=== PATIENT | female | born 1985 | race Caucasian/White ===

== ENCOUNTER → 2016-04-18 | Outpatient (CLI) | payer OTHER ==
[~2016-04-18] MED LIST: ALBUTEROL0.09 MG/A2 INH; AMOXICILLI200 MG/51 PO; ATIVAN0.5 MG PO; CLARITIN10 MG PO; CYCLOBENZAPRINE5 M3 PO; DOXYCYLINE50 MG PO; FLAGYL500 M1 PO; FLEXERIL5 MG PO; FLINTSTONES1 CTB PO; HYDROCODONE BIT1 T11 PO; KLONOPIN0.5 MG PO; LATUDA PO; MEDROL DOSEPAK4 MG PO; MOTRIN800 MG PO; Motrin,Rufen800 MG PO; PERCOCET 325 MG1 TA5 PO; PRENATAL1 TA1 PO; PROVENTIL0.09 MG/A1 INH; REXULTI0.5 MG PO; TESSALON PERLE100 M1 PO; TYLENOL W/ CODEI5 ML PO; ULTRAM50 MG PO; VISTARIL25 MG PO; XANAX0.25 MG PO; ZANTAC150 MG PO; ZITHROMAX250 MG PO; ZOFRAN4 MG PO
[2016-04-18 08:47] LABS: BILIRUBIN NEGATIVE (NEGATIVE); BLOOD 1+ (NEGATIVE); CLARITY CLEAR (CLEAR); COLOR YELLOW (YELLOW); GLUCOSE NEGATIVE (NEGATIVE); KETONE NEGATIVE (NEGATIVE); LEUKO ESTERASE NEGATIVE (NEGATIVE); NITRITE NEGATIVE (NEGATIVE); PH 5.5 (5.0-9.0); PROTEIN NEGATIVE (NEGATIVE); SPECIFIC GRAVITY 1.015 (1.005-1.030); UROBILINOGEN 0.2 E.U./dl (0.2-1.0)
[2016-04-18 08:55] LABS: URINE AMPHETAMINES < 1000 (1000ng/ml); URINE BARBITURATES < 200 (200ng/ml); URINE COCAINE < 300 (300ng/ml)
[2016-04-18 09:04] LABS: BASO # 0.1 10*3/uL (0.0-0.1); EOS # 0.6 10*3/uL (0.0-0.4); EOS % 7.7 % (1.0-4.0); HEMATOCRIT 40.7 % (37.0-47.0); HEMOGLOBIN 13.2 g/dl (12.0-16.0); LYMPH # 1.8 10*3/uL (1.3-4.4); LYMPH % 25.4 % (27.0-41.0); MEAN CELL VOLUME 89.5 fl (81.0-99.0); MEAN CORPUSCULAR HGB CONC 32.4 g/dl (33.0-37.0); MEAN PLATELET VOLUME 9.2 fl (9.6-12.3); MONO # 0.5 10*3/uL (0.1-1.0); NEUT # 4.3 10*3/uL (2.3-7.9); NEUT % 58.6 % (47.0-73.0); PLATELET COUNT AUTOMATED 347 10*3/uL (130-400); RED BLOOD COUNT 4.55 10*6/uL (4.10-5.10); WHITE BLOOD COUNT 7.3 10*3/uL (4.8-10.8)
[2016-04-18 09:27] LABS: ALBUMIN 3.8 gm/dl (3.1-4.5); ALKALINE PHOSPHATASE 63 U/L (45-117); BILIRUBIN, DIRECT < 0.1 mg/dL (0.0-0.2); BILIRUBIN, TOTAL 0.3 mg/dl (0.2-1.0); BUN 13 mg/dl (7-24); CARBON DIOXIDE 28 mmol/L (21-32); CHLORIDE 105 mmol/L (98-107); CHOLESTEROL 194 mg/dL (<200); EST GLOM FILT AFRICAN AMERICAN > 60 ml/min; GLUCOSE 88 mg/dL (65-99); HDL CHOLESTEROL 73 mg/dl (40-60); LDL CHOLESTEROL 103 mg/dL (9-159); POTASSIUM 4.1 mmol/L (3.5-5.1); SGOT/AST 11 IU/L (3-35); SGPT/ALT 23 U/L (12-78); SODIUM 141 mmol/L (136-145); THYROXINE (T4) TOTAL 9.5 ug/dl (4.8-13.9); TOTAL PROTEIN 7.2 gm/dL (6.4-8.2); TRIGLYCERIDES 92 mg/dl (<150); VLDL CHOLESTEROL 18 mg/dL (6-40)
[2016-04-18 09:34] LABS: BACTERIA 1+
[2016-04-18 09:45] LABS: VITAMIN D, 25-HYDROXY 29.2 ng/mL (30-100)
== END | disposition home or self-care (01) ==
LOC: LAB 08:11
PROVIDERS: Nurse Practitioner Psychiatric/Mental Health
DX: F31.9 Bipolar disorder, unspecified (principal)

== ENCOUNTER 2016-08-12 17:48 | Emergency (ER) | payer OTHER ==
[~2016-08-12] VITALS: Ht 165.1 cm; Wt 86.2 kg
[2016-08-12] MEDS ORDERED: TRAMADOL HCL50 MG PO (18:45)
[2016-08-12] MEDS ORDERED: CYCLOBENZAPRINE5 M3 PO (18:45)
== END 2016-08-12 18:54 | disposition home or self-care (01) ==
LOC: ED 17:48
DX: M26.601 Right temporomandibular joint disorder, unspecified (principal)

== ENCOUNTER 2016-11-16 10:48 | Emergency (ER) | payer OTHER ==
[~2016-11-16] VITALS: Wt 86.6 kg
--- NOTE | ~2016-11-16 | EKG ---
[place], [place] ELECTROCARDIOGRAM REPORT NAME: ENRIQUETA BRADLEY UNIT #: [id number] ROOM: DOCTOR: FRANCISCO BARNETT MD BIRTHDATE: [birth year] DOS: 11/16/2016 TIME: 1155 hours. Normal sinus rhythm at 79 beats per minute. The tracing is normal. No previous tracing is available for comparison. FRANCISCO BARNETT MD CM:EKGRPT:ELECTROCARDIOGRAM REPORT [id number] FRANCISCO BARNETT MD
[~2016-11-16 10:48] MED LIST changes: +TRAMADOL HCL50 MG PO
[2016-11-16] MEDS ORDERED: OHM ALLERGY REL10 MG PO (11:10)
[2016-11-16 11:45] LABS: BASO # 0.1 10*3/uL (0.0-0.1); BASO % 0.8 % (0.0-1.0); EOS # 0.4 10*3/uL (0.0-0.4); EOS % 4.4 % (1.0-4.0); HEMATOCRIT 41.1 % (37.0-47.0); HEMOGLOBIN 13.9 g/dl (12.0-16.0); LYMPH % 21.5 % (27.0-41.0); MEAN CELL VOLUME 86.5 fl (81.0-99.0); MEAN CORPUSCULAR HGB 29.3 pg (27.0-31.0); MEAN CORPUSCULAR HGB CONC 33.8 g/dl (33.0-37.0); MEAN PLATELET VOLUME 9.3 fl (9.6-12.3); MONO # 0.5 10*3/uL (0.1-1.0); MONO % 5.1 % (3.0-9.0); NEUT # 6.3 10*3/uL (2.3-7.9); NEUT % 67.9 % (47.0-73.0); PLATELET COUNT AUTOMATED 377 10*3/uL (130-400); RED BLOOD COUNT 4.75 10*6/uL (4.10-5.10); WHITE BLOOD COUNT 9.2 10*3/uL (4.8-10.8)
[2016-11-16 11:53] LABS: BILIRUBIN NEGATIVE (NEGATIVE); BLOOD TRACE-INTACT (NEGATIVE); CLARITY SL CLOUDY (CLEAR); COLOR YELLOW (YELLOW); GLUCOSE NEGATIVE (NEGATIVE); KETONE NEGATIVE (NEGATIVE); LEUKO ESTERASE NEGATIVE (NEGATIVE); NITRITE NEGATIVE (NEGATIVE); PROTEIN NEGATIVE (NEGATIVE); SPECIFIC GRAVITY <= 1.005 (1.005-1.030); UROBILINOGEN 0.2 E.U./dl (0.2-1.0)
[2016-11-16 11:57] LABS: ALBUMIN 4.1 gm/dl (3.1-4.5); ALKALINE PHOSPHATASE 75 U/L (45-117); BILIRUBIN, TOTAL 0.4 mg/dl (0.2-1.0); BUN 7 mg/dl (7-24); CARBON DIOXIDE 25 mmol/L (21-32); CHLORIDE 106 mmol/L (98-107); EST GLOM FILT AFRICAN AMERICAN > 60 ml/min; GLUCOSE 95 mg/dL (65-99); SGOT/AST 11 IU/L (3-35); SGPT/ALT 23 U/L (12-78); SODIUM 141 mmol/L (136-145); TOTAL PROTEIN 7.7 gm/dL (6.4-8.2)
[2016-11-16 12:04] LABS: BACTERIA TRACE; URINE REFLEX COMMENT NO (NO)
[2016-11-16] MEDS ORDERED: MIRALAX POWDER17 G1 PO (13:07)
== END 2016-11-16 13:19 | disposition home or self-care (01) ==
LOC: ED 10:48
PROVIDERS: Nurse Practitioner Family
DX: K59.00 Constipation, unspecified (principal); R53.83 Other fatigue; R11.0 Nausea; Z88.6 Allergy status to analgesic agent

== ENCOUNTER 2017-03-31 21:30 | Emergency (ER) | payer OTHER ==
[~2017-03-31] VITALS: Ht 165.1 cm; Wt 83.9 kg
[~2017-03-31 21:30] MED LIST changes: +MIRALAX POWDER17 G1 PO; +OHM ALLERGY REL10 MG PO
[2017-03-31] MEDS ORDERED: AUGMENTIN 875875 MG PO (22:38)
== END 2017-03-31 22:50 | disposition home or self-care (01) ==
LOC: ED 21:30
DX: J40 Bronchitis, not specified as acute or chronic (principal); J32.9 Chronic sinusitis, unspecified; J04.0 Acute laryngitis; Z98.890 Other specified postprocedural states; Z79.899 Other long term (current) drug therapy; Z88.6 Allergy status to analgesic agent

== ENCOUNTER 2017-04-30 10:54 | Inpatient (IN) | payer OTHER ==
[2017-04-30] VITALS (8 sets, daily range): BP systolic 107–133; BP diastolic 65–81
[~2017-04-30] VITALS: Ht 165.1 cm; Wt 84.9 kg
--- NOTE | ~2017-04-30 | ST ---
[place], [place] EXERCISE STRESS TEST REPORT NAME[facility]LEY [id number] UNIT #: [id number] ROOM: 407 DOCTOR: YAW SHIPMAN MD BIRTHDATE: [birth year] DOS: 05/01/2017 REFERRING PHYSICIAN: Dr. Castaneda. INDICATION: Central chest pain. The patient underwent standard Curtis protocol stress EKG. The patient's baseline EKG shows a normal sinus rhythm with no ischemic changes. The patient's resting blood pressure was 110/82. The patient exercised for 7 minutes and 15 seconds. The patient's peak heart rate was 169, which represents 89% of maximum predicted. The patient had no new chest pain symptoms. The patient had no EKG changes or arrhythmias. The patient's Mooney Treadmill score 7.25. SUMMARY OF FINDINGS: 1. Negative exercise treadmill stress test to adequate work level. 2. Mooney treadmill score 7.25% portending a low risk prognosis. 3. Please see separate perfusion scan imaging results. YAW SHIPMAN MD CM:STRESS:EXERCISE STRESS TEST REPORT [id number] YAW SHIPMAN MD
[~2017-04-30 10:54] MED LIST changes: +AUGMENTIN 875875 MG PO
[2017-04-30 12:06] LABS: BASO # 0.1 10*3/uL (0.0-0.1); BASO % 0.8 % (0.0-1.0); EOS # 0.3 10*3/uL (0.0-0.4); EOS % 3.8 % (1.0-4.0); HEMATOCRIT 37.9 % (37.0-47.0); HEMOGLOBIN 12.9 g/dl (12.0-16.0); LYMPH # 1.5 10*3/uL (1.3-4.4); LYMPH % 19.5 % (27.0-41.0); MEAN CELL VOLUME 84.8 fl (81.0-99.0); MEAN CORPUSCULAR HGB 28.9 pg (27.0-31.0); MEAN PLATELET VOLUME 9.1 fl (9.6-12.3); MONO # 0.4 10*3/uL (0.1-1.0); MONO % 5.7 % (3.0-9.0); NEUT # 5.4 10*3/uL (2.3-7.9); NEUT % 70.1 % (47.0-73.0); PLATELET COUNT AUTOMATED 328 10*3/uL (130-400); RED BLOOD COUNT 4.47 10*6/uL (4.10-5.10); RED CELL DISTRI WIDTH 13.6 % (0-14.5); WHITE BLOOD COUNT 7.7 10*3/uL (4.8-10.8)
[2017-04-30 12:16] LABS: ACT PARTIAL THROMBO TIME 24.2 SECONDS (20.8-31.5)
[2017-04-30 12:25] LABS: ALKALINE PHOSPHATASE 70 U/L (45-117); BUN 12 mg/dl (7-24); CHLORIDE 107 mmol/L (98-107); CREATININE 0.98 mg/dL (0.55-1.02); LIPASE 147 U/L (73-393); SGOT/AST 15 IU/L (3-35); SGPT/ALT 22 U/L (12-78); SODIUM 140 mmol/L (136-145); TOTAL PROTEIN 7.3 gm/dL (6.4-8.2)
[2017-04-30 12:36] LABS: BETA-HCG, QUANT < 1.0 mIU/mL (1-3)
[2017-04-30 12:37] LABS: TROPONIN I < 0.015 ng/ml (<0.045)
[2017-05-01] VITALS: BP 105/66
[2017-05-01 07:40] LABS: ACT PARTIAL THROMBO TIME 23.5 SECONDS (20.8-31.5)
[2017-05-01 07:41] LABS: BASO # 0.1 10*3/uL (0.0-0.1); BASO % 0.6 % (0.0-1.0); EOS # 0.4 10*3/uL (0.0-0.4); EOS % 5.1 % (1.0-4.0); HEMATOCRIT 37.7 % (37.0-47.0); HEMOGLOBIN 12.5 g/dl (12.0-16.0); LYMPH # 2.9 10*3/uL (1.3-4.4); LYMPH % 33.6 % (27.0-41.0); MEAN CELL VOLUME 87.1 fl (81.0-99.0); MEAN CORPUSCULAR HGB 28.9 pg (27.0-31.0); MEAN CORPUSCULAR HGB CONC 33.2 g/dl (33.0-37.0); MEAN PLATELET VOLUME 9.6 fl (9.6-12.3); MONO # 0.7 10*3/uL (0.1-1.0); MONO % 7.8 % (3.0-9.0); NEUT # 4.5 10*3/uL (2.3-7.9); NEUT % 52.7 % (47.0-73.0); PLATELET COUNT AUTOMATED 320 10*3/uL (130-400); RED BLOOD COUNT 4.33 10*6/uL (4.10-5.10); RED CELL DISTRI WIDTH 13.8 % (0-14.5); WHITE BLOOD COUNT 8.6 10*3/uL (4.8-10.8)
[2017-05-01 07:51] LABS: BUN 13 mg/dl (7-24); CHLORIDE 105 mmol/L (98-107); CHOLESTEROL 170 mg/dL (<200); CREATININE 0.87 mg/dL (0.55-1.02); HDL CHOLESTEROL 50 mg/dl (40-60); LDL CHOLESTEROL 96 mg/dL (9-159); PHOSPHOROUS 3.4 mg/dL (2.5-4.9); POTASSIUM 4.1 mmol/L (3.5-5.1); SODIUM 140 mmol/L (136-145); TRIGLYCERIDES 122 mg/dl (<150); VLDL CHOLESTEROL 24 mg/dL (6-40)
[2017-05-01 08:00] VITALS: BP 118/69
[2017-05-01 09:48] LABS: VITAMIN D, 25-HYDROXY 20.4 ng/mL (30-100)
[2017-05-01] MEDS ORDERED: LEXAPRO10 MG PO (11:21)
[2017-05-01] MEDS ORDERED: HYDROXYZINE PAM25 M1 PO (11:21)
[2017-05-01] MEDS ORDERED: VITAMIN D-32000 UNIT PO (11:21)
== END 2017-05-01 12:30 | disposition home or self-care (01) | DRG 392 ==
LOC: ED 10:54 → EDHOLD 12:56 → 4E 12:56
PROVIDERS: Emergency Medicine; Internal Medicine
PROC: 4A02XM4 Measurement of Cardiac Total Activity, External Approach (ICD-10-PCS; principal; 2017-05-01)
DX: K21.9 Gastro-esophageal reflux disease without esophagitis (principal); E66.09 Other obesity due to excess calories; F41.0 Panic disorder [episodic paroxysmal anxiety]; I25.10 Atherosclerotic heart disease of native coronary artery without angina pectoris; F41.9 Anxiety disorder, unspecified; Z68.31 Body mass index [BMI] 31.0-31.9, adult; Z82.49 Family history of ischemic heart disease and other diseases of the circulatory system; Z78.9 Other specified health status; Z81.8 Family history of other mental and behavioral disorders; Z84.89 Family history of other specified conditions; Z79.2 Long term (current) use of antibiotics; Z98.891 History of uterine scar from previous surgery; Z79.899 Other long term (current) drug therapy; Z87.81 Personal history of (healed) traumatic fracture; Z83.6 Family history of other diseases of the respiratory system; Z79.01 Long term (current) use of anticoagulants; Z88.6 Allergy status to analgesic agent

== ENCOUNTER 2017-06-09 23:56 | Emergency (ER) | payer OTHER ==
[~2017-06-09] VITALS: Ht 165.1 cm; Wt 88.0 kg
[~2017-06-09 23:56] MED LIST changes: +HYDROXYZINE PAM25 M1 PO; +LEXAPRO10 MG PO; +VITAMIN D-32000 UNIT PO
[2017-06-10 00:39] LABS: BASO # 0.1 10*3/uL (0.0-0.1); BASO % 0.7 % (0.0-1.0); EOS # 0.3 10*3/uL (0.0-0.4); EOS % 2.9 % (1.0-4.0); HEMATOCRIT 38.4 % (37.0-47.0); HEMOGLOBIN 12.6 g/dl (12.0-16.0); LYMPH # 1.7 10*3/uL (1.3-4.4); LYMPH % 15.6 % (27.0-41.0); MEAN CELL VOLUME 86.3 fl (81.0-99.0); MEAN CORPUSCULAR HGB 28.3 pg (27.0-31.0); MEAN CORPUSCULAR HGB CONC 32.8 g/dl (33.0-37.0); MEAN PLATELET VOLUME 8.9 fl (9.6-12.3); MONO # 0.6 10*3/uL (0.1-1.0); MONO % 5.2 % (3.0-9.0); NEUT # 7.9 10*3/uL (2.3-7.9); NEUT % 75.3 % (47.0-73.0); PLATELET COUNT AUTOMATED 381 10*3/uL (130-400); RED BLOOD COUNT 4.45 10*6/uL (4.10-5.10); RED CELL DISTRI WIDTH 13.2 % (0-14.5); WHITE BLOOD COUNT 10.6 10*3/uL (4.8-10.8)
[2017-06-10 00:42] LABS: BILIRUBIN NEGATIVE (NEGATIVE); BLOOD TRACE-INTACT (NEGATIVE); CLARITY CLEAR (CLEAR); COLOR YELLOW (YELLOW); GLUCOSE NEGATIVE (NEGATIVE); KETONE NEGATIVE (NEGATIVE); LEUKO ESTERASE NEGATIVE (NEGATIVE); NITRITE NEGATIVE (NEGATIVE); SPECIFIC GRAVITY <= 1.005 (1.005-1.030); UROBILINOGEN 0.2 E.U./dl (0.2-1.0)
[2017-06-10 00:49] LABS: BACTERIA 1+
[2017-06-10 00:54] LABS: URINE AMPHETAMINES < 1000 (1000ng/ml); URINE BARBITURATES < 200 (200ng/ml); URINE BENZODIAZEPINES < 200 (200ng/ml); URINE CANNABINOIDS (THC) < 50 (50ng/ml); URINE COCAINE < 300 (300ng/ml); URINE METHADONE < 300 (300ng/ml); URINE OPIATES < 300 (300ng/ml)
[2017-06-10 00:55] LABS: URINE PHENCYCLIDINE < 25 (25ng/ml)
[2017-06-10 01:00] LABS: ALKALINE PHOSPHATASE 74 U/L (45-117); BUN 12 mg/dl (7-24); CHLORIDE 105 mmol/L (98-107); CREATININE 0.92 mg/dL (0.55-1.02); LIPASE 182 U/L (73-393); POTASSIUM 3.6 mmol/L (3.5-5.1); SGOT/AST 11 IU/L (3-35); SGPT/ALT 19 U/L (12-78); SODIUM 140 mmol/L (136-145); TOTAL PROTEIN 7.5 gm/dL (6.4-8.2)
[2017-06-10 01:01] LABS: TROPONIN I < 0.015 ng/ml (<0.045)
[2017-06-10] MEDS ORDERED: VISTARIL25 MG PO (01:07)
[2017-06-10] MEDS ORDERED: DICYCLOMINE HCL20 MG PO (01:07)
== END 2017-06-10 01:40 | disposition home or self-care (01) ==
LOC: ED 23:56
PROVIDERS: Physician Assistant
DX: R51 Headache (principal); F41.9 Anxiety disorder, unspecified; F31.9 Bipolar disorder, unspecified; Z98.890 Other specified postprocedural states; Z79.899 Other long term (current) drug therapy; Z88.6 Allergy status to analgesic agent

== ENCOUNTER → 2017-10-21 | Outpatient (CLI) | payer MEDICAID ==
[~2017-10-21] MED LIST changes: +DICYCLOMINE HCL20 MG PO
--- NOTE | ~2017-10-21 | EKG ---
[place], [place] ELECTROCARDIOGRAM REPORT NAME: ENRIQUETA BRADLEY UNIT #: [id number] ROOM: DOCTOR: SLAVA DRAFT REPORT BIRTHDATE: [birth year] [facility] Test Date: 2017-10-21 Test Time: 15:22:25 Pat Name: ENRIQUETA BRADLEY Department: Room: Gender: F [employer]: BIB : 1985 Requested By: RANJITH ZAMORA Order Number: [id number] Reading MD: Alisa Salamanca MD Measurements Intervals [place] Rate: 66 P: 43 CO: 151 QRS: 8 QRSD: 102 T: 12 QT: 407 QTc: 427 Interpretive Statements Sinus rhythm Normal ECG Electronically Signed On 10-26-2017 14:22:52 PDT by Alisa Salamanca MD CM:EKGRPT:ELECTROCARDIOGRAM REPORT [id number] RANJITH PEDERSEN DRAFT REPORT RANJITH ZAMORA MD
[2017-10-21 15:04] LABS: BASO # 0.1 10*3/uL (0.0-0.1); BASO % 0.9 % (0.0-1.0); EOS # 0.4 10*3/uL (0.0-0.4); EOS % 4.9 % (1.0-4.0); HEMATOCRIT 41.3 % (37.0-47.0); HEMOGLOBIN 13.5 g/dl (12.0-16.0); LYMPH # 1.9 10*3/uL (1.3-4.4); LYMPH % 25.2 % (27.0-41.0); MEAN CELL VOLUME 88.6 fl (81.0-99.0); MEAN CORPUSCULAR HGB CONC 32.7 g/dl (33.0-37.0); MEAN PLATELET VOLUME 9.2 fl (9.6-12.3); MONO # 0.5 10*3/uL (0.1-1.0); MONO % 6.7 % (3.0-9.0); NEUT # 4.7 10*3/uL (2.3-7.9); NEUT % 62.2 % (47.0-73.0); PLATELET COUNT AUTOMATED 408 10*3/uL (130-400); RED BLOOD COUNT 4.66 10*6/uL (4.10-5.10); RED CELL DISTRI WIDTH 13.3 % (0-14.5); WHITE BLOOD COUNT 7.6 10*3/uL (4.8-10.8)
[2017-10-21 15:17] LABS: ALBUMIN 4.3 gm/dl (3.1-4.5); BUN 11 mg/dl (7-24); CHLORIDE 107 mmol/L (98-107); CHOLESTEROL 220 mg/dL (<200); CPK 75 U/L (26-192); CREATININE 0.94 mg/dL (0.55-1.02); POTASSIUM 4.2 mmol/L (3.5-5.1); SGOT/AST 6 IU/L (3-35); SGPT/ALT 21 U/L (12-78); SODIUM 141 mmol/L (136-145); T3 UPTAKE 33 % (31-39); THYROXINE (T4) TOTAL 10.1 ug/dl (4.8-13.9); TOTAL PROTEIN 7.8 gm/dL (6.4-8.2); TRIGLYCERIDES 127 mg/dl (<150); VLDL CHOLESTEROL 25 mg/dL (6-40)
[2017-10-21 15:18] LABS: ALKALINE PHOSPHATASE 75 U/L (45-117); HDL CHOLESTEROL 56 mg/dl (40-60); LDL CHOLESTEROL 139 mg/dL (9-159)
[2017-10-23 18:08] LABS: CREATININE, RANDOM URINE 180.4 mg/dL (Not Estab.)
[2017-10-25 10:03] LABS: METANEPH-CREAT RATIO 0.3 (0.0-1.0)
== END | disposition home or self-care (01) ==
LOC: LAB 14:21
PROVIDERS: Pediatrics
DX: Z00.01 Encounter for general adult medical examination with abnormal findings (principal); R07.9 Chest pain, unspecified; F32.1 Major depressive disorder, single episode, moderate

== ENCOUNTER → 2018-08-19 | Outpatient (CLI) | payer OTHER ==
[2018-08-19 16:39] LABS: BASO # 0.1 10*3/uL (0.0-0.1); BASO % 0.7 % (0.0-1.0); EOS # 0.5 10*3/uL (0.0-0.4); EOS % 6.2 % (1.0-4.0); HEMATOCRIT 40.6 % (37.0-47.0); HEMOGLOBIN 13.5 g/dl (12.0-16.0); LYMPH # 2.1 10*3/uL (1.3-4.4); MEAN CELL VOLUME 88.6 fl (81.0-99.0); MEAN CORPUSCULAR HGB 29.5 pg (27.0-31.0); MEAN CORPUSCULAR HGB CONC 33.3 g/dl (33.0-37.0); MEAN PLATELET VOLUME 9.3 fl (9.6-12.3); MONO # 0.5 10*3/uL (0.1-1.0); MONO % 6.5 % (3.0-9.0); NEUT % 61.5 % (47.0-73.0); PLATELET COUNT AUTOMATED 403 10*3/uL (130-400); RED BLOOD COUNT 4.58 10*6/uL (4.10-5.10); RED CELL DISTRI WIDTH 13.2 % (0-14.5); WHITE BLOOD COUNT 8.2 10*3/uL (4.8-10.8)
[2018-08-19 17:07] LABS: ALBUMIN 4.1 gm/dl (3.1-4.5); ALKALINE PHOSPHATASE 76 U/L (45-117); BUN 10 mg/dl (7-24); CHLORIDE 106 mmol/L (98-107); CREATININE 0.89 mg/dL (0.55-1.02); SGOT/AST 9 IU/L (3-35); SGPT/ALT 24 U/L (12-78); SODIUM 140 mmol/L (136-145); TOTAL PROTEIN 7.7 gm/dL (6.4-8.2)
[2018-08-19 17:14] LABS: VITAMIN D, 25-HYDROXY 25.5 ng/mL (30-100)
== END | disposition home or self-care (01) ==
LOC: LAB 16:18
PROVIDERS: Nurse Practitioner Adult Health
DX: E56.9 Vitamin deficiency, unspecified (principal); F32.9 Major depressive disorder, single episode, unspecified; F41.0 Panic disorder [episodic paroxysmal anxiety]; F41.9 Anxiety disorder, unspecified; R53.83 Other fatigue

== ENCOUNTER 2021-02-11 19:37 | Emergency (ER) | payer OTHER ==
[~2021-02-11] VITALS: Ht 165.1 cm; Wt 81.6 kg
== END 2021-02-11 23:12 | disposition left against medical advice (07) ==
LOC: ED 19:37
DX: U07.1 COVID-19 (principal); Z88.6 Allergy status to analgesic agent

== ENCOUNTER 2021-04-11 11:55 | Emergency (ER) | payer OTHER ==
[~2021-04-11] VITALS: Wt 86.2 kg
== END 2021-04-11 14:22 | disposition left against medical advice (07) ==
LOC: ED 11:55
DX: R00.2 Palpitations (principal); Z53.21 Procedure and treatment not carried out due to patient leaving prior to being seen by health care provider

== ENCOUNTER 2023-02-08 12:08 | Emergency (ER) | payer OTHER ==
[~2023-02-08] VITALS: Ht 165.1 cm; Wt 79.8 kg
== END 2023-02-08 13:54 | disposition home or self-care (01) ==
LOC: ED 12:08
DX: S71.151A Open bite, right thigh, initial encounter (principal); J45.909 Unspecified asthma, uncomplicated; F41.9 Anxiety disorder, unspecified; Z88.6 Allergy status to analgesic agent; Z98.890 Other specified postprocedural states; W54.0XXA Bitten by dog, initial encounter; Y93.89 Activity, other specified; Y92.89 Other specified places as the place of occurrence of the external cause; Y99.8 Other external cause status

== ENCOUNTER 2024-03-15 12:06 | Emergency (ER) | payer OTHER ==
[~2024-03-15] VITALS: Ht 165.1 cm; Wt 81.6 kg
[2024-03-15] MEDS ORDERED: LORazepam 1 MG TAB PO ONE (12:15)
[2024-03-15] MEDS ORDERED: Ondansetron Hydrochloride 4 MG TAB PO ONE (12:40)
[2024-03-15 12:44] LABS: BASO % 0.6 % (0.0-1.0); EOS # 0.2 10*3/uL (0.0-0.4); HEMATOCRIT 39.8 % (37.0-47.0); MEAN CELL VOLUME 88.6 fl (81.0-99.0); MEAN CORPUSCULAR HGB 29.8 pg (27.0-31.0); MEAN CORPUSCULAR HGB CONC 33.7 g/dl (33.0-37.0); MEAN PLATELET VOLUME 8.7 fl (9.6-12.3); MONO # 0.5 10*3/uL (0.1-1.0); MONO % 7.3 % (3.0-9.0); NEUT # 3.7 10*3/uL (2.3-7.9); PLATELET COUNT AUTOMATED 397 10*3/uL (130-400); RED BLOOD COUNT 4.49 10*6/uL (4.10-5.10); RED CELL DISTRI WIDTH 13.1 % (0-14.5); WHITE BLOOD COUNT 6.6 10*3/uL (4.8-10.8)
[2024-03-15 13:14] LABS: BUN 12 mg/dl (9-23); CHLORIDE 106 mmol/L (98-107); POTASSIUM 3.6 mmol/L (3.4-5.1)
[2024-03-15] MEDS ORDERED: Meclizine Hydrochloride 25 MG TAB PO ONE (13:40)
[2024-03-15] MEDS ORDERED: VALTREX1000 MG PO (14:03)
[2024-03-15] MEDS ORDERED: VISTARIL25 MG PO (14:03)
== END 2024-03-15 13:59 | disposition home or self-care (01) ==
LOC: ED 12:06
PROVIDERS: Physician Assistant Medical
DX: F41.9 Anxiety disorder, unspecified (principal); B00.1 Herpesviral vesicular dermatitis; R42 Dizziness and giddiness; M79.7 Fibromyalgia; Z88.6 Allergy status to analgesic agent; Z98.890 Other specified postprocedural states